=== PATIENT | male | born 1945 | race Two or more races ===

== ENCOUNTER 2016-09-14 05:50 | Emergency (ER) | payer MEDICARE ==
--- NOTE | 2016-09-14 06:08 | Emergency Department Record ---
History of Present Illness - General Chief Complaint: Fall Injury Stated Complaint: FALL Time Seen by Provider: 09/14/16 06:06 Source: Patient Mode of Arrival: EMS Limitations: No limitations - History of Present Illness Initial Comments: The patient is here due to falling in the shower at home an hour ago. According to his he was taking a shower and lost his balance and fell forward injuring the R side of his head and his R shoulder and knee. The patient states he did walk after the fall and had no neck pain. Presently the patient is only complaining of R shoulder and knee pain. He denies any MITCHELL, nausea or any blurred vision. The patient has a recent hx of frequent falls and is supposed to use a walker at home but often does not. He does see visiting physicians for his health care. The patient and deny any recent illness or medication changes. MD Complaint: Fall Onset/Timin -: Minutes(s) Fall From: Standing When Fall Occurred: Just prior to arrival Fall Witnessed: No Place Fall Occurred: Home Loss of Consciousness: None Prolonged Down Time?: No Symptoms Prior to Fall: Other Location: Head - [place] Coma Scale Eye Response: (4) Open spontaneously Motor Response: (6) Obeys commands Verbal Response: (5) Oriented [place] Total: 15 - Related Data Home Medications Medication Instructions Recorded Confirmed Last Taken Acetaminophen [Tylenol Arthritis] 650 mg PO BID 09/14/16 09/14/16 09/13/16 Ascorbic Acid [Vitamin C] 1,000 mg PO DAILY 09/14/16 09/14/16 09/13/16 Aspirin [Aspir-Low] 81 mg PO DAILY 09/14/16 09/14/16 09/13/16 Bimatoprost [Lumigan] 1 drop OP QHS 09/14/16 09/14/16 09/13/16 Bisacodyl [Dulcolax] 5 mg PO BID 09/14/16 09/14/16 09/13/16 Brinzolamide/Brimonidine Tart 1 drop OP TID 09/14/16 09/14/16 09/13/16 [Simbrinza 1%-0.2% Eye Drops] Bumetanide [Bumex] 1 mg PO TID 09/14/16 09/14/16 09/13/16 Cholecalciferol (Vitamin D3) 5,000 unit PO DAILY 09/14/16 09/14/16 09/13/16 [Vitamin D3] Cyanocobalamin (Vitamin B-12) 1,000 mcg PO BID 09/14/16 09/14/16 09/13/16 [Vitamin B-12] Docusate Calcium [Stool Softener] 240 mg PO DAILY 09/14/16 09/14/16 09/13/16 Ferrous Sulfate, Dried [Iron] 65 mg PO DAILY 09/14/16 09/14/16 09/13/16 Fexofenadine HCl [Patricia Allergy] 180 mg PO DAILY 09/14/16 09/14/16 09/13/16 Fluoxetine HCl [Prozac] 20 mg PO DAILY 09/14/16 09/14/16 09/13/16 Hydrocodone/Acetaminophen [[place] 1 tab PO Q6H PRN 09/14/16 09/14/16 09/13/16 10mg/325mg] Insulin Aspart [Novolog Flexpen] 18 unit SQ WMEALS 09/14/16 09/14/16 09/13/16 Insulin Detemir [Levemir Flextouch] 65 unit SQ QHS 09/14/16 09/14/16 09/13/16 Isosorbide Mononitrate [Imdur] 30 mg PO DAILY 09/14/16 09/14/16 09/13/16 Lansoprazole [Prevacid] 15 mg PO DAILY 09/14/16 09/14/16 09/13/16 Losartan Potassium [Cozaar] 100 mg PO DAILY 09/14/16 09/14/16 09/13/16 Magnesium 250 mg PO DAILY 09/14/16 09/14/16 09/13/16 Metformin HCl [Glucophage] 1,000 mg PO BID 09/14/16 09/14/16 09/13/16 Metoclopramide HCl 10 mg PO QID 09/14/16 09/14/16 09/13/16 Metoprolol Succinate [Toprol Xl] 100 mg PO DAILY 09/14/16 09/14/16 09/13/16 Multivitamin [Multi-Vitamin Daily] 1 each PO DAILY 09/14/16 09/14/16 09/13/16 Nitroglycerin [Nitrostat] 0.4 mg SL ASDIR PRN 09/14/16 09/14/16 Unknown Pantoprazole Sodium [Protonix] 40 mg PO DAILY 09/14/16 09/14/16 09/13/16 Potassium Chloride [Klor-Con] 20 meq PO BID 09/14/16 09/14/16 09/13/16 Pravastatin Sodium [Pravachol] 40 mg PO DAILY 09/14/16 09/14/16 09/13/16 Ticagrelor [Brilinta] 90 mg PO BID 09/14/16 09/14/16 09/13/16 Timolol Maleate 0.5% 5Ml Btl 1 drop OP DAILY 09/14/16 09/14/16 09/13/16 [Timoptic] Allergies Allergy/AdvReac Type Severity Reaction Status Date / Time NICOLE Inhibitors Allergy SWELLING Verified 05/29/16 16:00 OF THE LIPS eptifibatide Allergy SWELLING Verified 05/29/16 16:00 [From Integrilin] OF THE TONGUE furosemide [From Lasix] Allergy RASH Verified 05/29/16 15:59 propofol Allergy RASH Verified 05/29/16 15:59 fentanyl AdvReac Verified 05/29/16 15:59 states he is immune morphine AdvReac "doesn't Verified 05/29/16 15:59 work" Travel Screening - Travel/Exposure Within Last 30 Days Have you traveled within the last 30 days?: No - Travel/Exposure Within Last Year Have you traveled outside the [place] in the last year?: No - Additonal Travel Details Have you been exposed to anyone with a communicable illness?: No Review of Systems Constitutional: Denies: Chills, Fever Eyes: Denies: Eye discharge ENT: Denies: Congestion Respiratory: Denies: Cough, Dyspnea Past Medical History - SOCIAL HISTORY Smoking Status: Never smoker Alcohol Use: None Drug Use: None - RESPIRATORY Hx Respiratory Disorders: Yes Hx COPD: Yes Hx Sleep Apnea: Yes (has Bipap but doesn't wear it) - CARDIOVASCULAR Hx Cardio Disorders: Yes Hx CHF: Yes Hx Edema: Yes Hx Heart Attack: Yes Hx Hypertension: Yes Hx Irregular Heartbeat: Yes Hx Pacemaker/Defib: Yes (just pacer) - NEURO Hx Neuro Disorders: Yes Hx CVA: Yes (no residual affects) - GI Hx GI Disorders: Yes Hx Diverticulitis: Yes (w/rupture) - Hx Genitourinary Disorders: No - ENDOCRINE Hx Endocrine Disorders: Yes Hx Diabetes: Yes (IDDM) - MUSCULOSKELETAL Hx Musculoskeletal Disorders: Yes Hx Arthritis: Yes - PSYCH Hx Psych Problems: Yes Hx Depression: Yes - HEMATOLOGY/ONCOLOGY Hx Hematology/Oncology Disorders: Yes Hx Blood Transfusions: Yes Hx Blood Transfusion Reaction: No Family Medical History Any Significant Family History?: No Hx Diabetes: Father, Mother Hx Heart Disease: Father, Mother, Brother/Sister Physical Exam - General General Appearance: Alert, Oriented x3, Cooperative, No acute distress - Head Head exam: Normocephalic. negative: Atraumatic, Normal inspection Head exam detail: Abrasion (over the R temporal parietal area.) - Eye Eye exam: Normal appearance, PERRL - ENT ENT exam: negative: Normal exam (There is a mild contusion to the R maxillary area but there is no bony tenderness.) - Neck Neck exam: Normal inspection, Full ROM. negative: Tenderness (There is no posterior C spine tenderness.) - Respiratory Respiratory exam: Normal lung sounds bilaterally. negative: Respiratory distress - Cardiovascular Cardiovascular Exam: Irregular rhythm. negative: Regular rate, Normal rhythm - GI/Abdominal GI/Abdominal exam: Soft, Normal bowel sounds. negative: Tenderness - Extremities Extremities exam: Normal capillary refill, Pedal edema, Tenderness (THere is mild R shoulder and knee tenderness.). negative: Normal inspection, Full ROM - Neurological Neurological exam: Alert. negative: Motor sensory deficit Course Vital Signs 09/14/16 09/14/16 06:03 06:04 Temperature 97.4 F L Pulse Rate [ 78 Pulse Ox Probe] Respiratory 20 Rate Blood Pressure 129/77 [Left Arm] Pulse Ox 98 - Reevaluation(s) Reevaluation #1: The patient is resting comfortably. He still denies any MITCHELL, neck or back pain. He is resting comfortably and is on his way to xray. 09/14/16 06:50 Reevaluation #2: The patient's care will be turned over to Dr. Carpenter due to shift change. 09/14/16 06:51 Medical Decision Making - Data Complexity MDM Data: Labs Ordered and/or Reviewed - Lab Data Result diagrams: 09/14/16 06:25 09/14/16 06:25 Disposition Forms: Patient Portal Access
[2016-09-14 06:32] LABS: BASO % 0.4 % (0-6); EOS % 6.1 % (0-6); GRAN % 69.8 % (47-80); HEMATOCRIT 40.9 % (42.0-52.0); HEMOGLOBIN 12.4 gm/dl (14.0-18.0); LYMPH % 15.3 % (16-45); MEAN CORPUSCULAR HGB CONC 30.3 g/dl (32-36); MEAN PLATELET VOLUME 10.1 fl (7.4-10.4); MONO % 8.4 % (0-9); PLATELET COUNT 259 K/uL (130-400); WHITE BLOOD COUNT W/O DIFF 10.4 K/uL (4.2-12.2)
[2016-09-14 06:33] LABS: MEAN CORPUSCULAR HEMOGLOBIN 28.1 pg (27-33)
[2016-09-14 06:44] LABS: ANION GAP 17.8 (7-16); BLOOD UREA NITROGEN 20 mg/dL (9-20); CARBON DIOXIDE 23.2 mmol/L (22-30); CREATININE 0.9 mg/dL (0.66-1.25); EST GLOMERULAR FILTRATION RATE > 60 ml/min; GLUCOSE,RANDOM 196 mg/dL (70-110); INR 0.96; PARTIAL THROMBOPLASTIN TIME 25.5 SECONDS (24.5-39.1); PROTHROMBIN TIME (PATIENT) 10.9 SECONDS (9.5-12.1)
--- NOTE | 2016-09-14 07:55 | Emergency Department Record ---
History of Present Illness - General Chief Complaint: Fall Injury Stated Complaint: FALL Time Seen by Provider: 09/14/16 06:06 Source: Patient Mode of Arrival: EMS Limitations: No limitations - History of Present Illness Onset/Timin -: Minutes(s) Fall From: Standing When Fall Occurred: Just prior to arrival Fall Witnessed: No Place Fall Occurred: Home Loss of Consciousness: None Prolonged Down Time?: No Symptoms Prior to Fall: Other Location: Head - [place] Coma Scale Eye Response: (4) Open spontaneously Motor Response: (6) Obeys commands Verbal Response: (5) Oriented [place] Total: 15 - Related Data Home Medications Medication Instructions Recorded Confirmed Last Taken Acetaminophen [Tylenol Arthritis] 650 mg PO BID 09/14/16 09/14/16 09/13/16 Ascorbic Acid [Vitamin C] 1,000 mg PO DAILY 09/14/16 09/14/16 09/13/16 Aspirin [Aspir-Low] 81 mg PO DAILY 09/14/16 09/14/16 09/13/16 Bimatoprost [Lumigan] 1 drop OP QHS 09/14/16 09/14/16 09/13/16 Bisacodyl [Dulcolax] 5 mg PO BID 09/14/16 09/14/16 09/13/16 Brinzolamide/Brimonidine Tart 1 drop OP TID 09/14/16 09/14/16 09/13/16 [Simbrinza 1%-0.2% Eye Drops] Bumetanide [Bumex] 1 mg PO TID 09/14/16 09/14/16 09/13/16 Cholecalciferol (Vitamin D3) 5,000 unit PO DAILY 09/14/16 09/14/16 09/13/16 [Vitamin D3] Cyanocobalamin (Vitamin B-12) 1,000 mcg PO BID 09/14/16 09/14/16 09/13/16 [Vitamin B-12] Docusate Calcium [Stool Softener] 240 mg PO DAILY 09/14/16 09/14/16 09/13/16 Ferrous Sulfate, Dried [Iron] 65 mg PO DAILY 09/14/16 09/14/16 09/13/16 Fexofenadine HCl [Patricia Allergy] 180 mg PO DAILY 09/14/16 09/14/16 09/13/16 Fluoxetine HCl [Prozac] 20 mg PO DAILY 09/14/16 09/14/16 09/13/16 Hydrocodone/Acetaminophen [[place] 1 tab PO Q6H PRN 09/14/16 09/14/16 09/13/16 10mg/325mg] Insulin Aspart [Novolog Flexpen] 18 unit SQ WMEALS 09/14/16 09/14/16 09/13/16 Insulin Detemir [Levemir Flextouch] 65 unit SQ QHS 09/14/16 09/14/16 09/13/16 Isosorbide Mononitrate [Imdur] 30 mg PO DAILY 09/14/16 09/14/16 09/13/16 Lansoprazole [Prevacid] 15 mg PO DAILY 09/14/16 09/14/16 09/13/16 Losartan Potassium [Cozaar] 100 mg PO DAILY 09/14/16 09/14/16 09/13/16 Magnesium 250 mg PO DAILY 09/14/16 09/14/16 09/13/16 Metformin HCl [Glucophage] 1,000 mg PO BID 09/14/16 09/14/16 09/13/16 Metoclopramide HCl 10 mg PO QID 09/14/16 09/14/16 09/13/16 Metoprolol Succinate [Toprol Xl] 100 mg PO DAILY 09/14/16 09/14/16 09/13/16 Multivitamin [Multi-Vitamin Daily] 1 each PO DAILY 09/14/16 09/14/16 09/13/16 Nitroglycerin [Nitrostat] 0.4 mg SL ASDIR PRN 09/14/16 09/14/16 Unknown Pantoprazole Sodium [Protonix] 40 mg PO DAILY 09/14/16 09/14/16 09/13/16 Potassium Chloride [Klor-Con] 20 meq PO BID 09/14/16 09/14/16 09/13/16 Pravastatin Sodium [Pravachol] 40 mg PO DAILY 09/14/16 09/14/16 09/13/16 Ticagrelor [Brilinta] 90 mg PO BID 09/14/16 09/14/16 09/13/16 Timolol Maleate 0.5% 5Ml Btl 1 drop OP DAILY 09/14/16 09/14/16 09/13/16 [Timoptic] Allergies Allergy/AdvReac Type Severity Reaction Status Date / Time NICOLE Inhibitors Allergy SWELLING Verified 05/29/16 16:00 OF THE LIPS eptifibatide Allergy SWELLING Verified 05/29/16 16:00 [From Integrilin] OF THE TONGUE furosemide [From Lasix] Allergy RASH Verified 05/29/16 15:59 propofol Allergy RASH Verified 05/29/16 15:59 fentanyl AdvReac Verified 05/29/16 15:59 states he is immune morphine AdvReac "doesn't Verified 05/29/16 15:59 work" Travel Screening - Travel/Exposure Within Last 30 Days Have you traveled within the last 30 days?: No - Travel/Exposure Within Last Year Have you traveled outside the [place] in the last year?: No - Additonal Travel Details Have you been exposed to anyone with a communicable illness?: No Review of Systems Constitutional: Denies: Chills, Fever Eyes: Denies: Eye discharge ENT: Denies: Congestion Respiratory: Denies: Cough, Dyspnea Past Medical History - SOCIAL HISTORY Smoking Status: Never smoker Alcohol Use: None Drug Use: None - RESPIRATORY Hx Respiratory Disorders: Yes Hx COPD: Yes Hx Sleep Apnea: Yes (has Bipap but doesn't wear it) - CARDIOVASCULAR Hx Cardio Disorders: Yes Hx CHF: Yes Hx Edema: Yes Hx Heart Attack: Yes Hx Hypertension: Yes Hx Irregular Heartbeat: Yes Hx Pacemaker/Defib: Yes (just pacer) - NEURO Hx Neuro Disorders: Yes Hx CVA: Yes (no residual affects) - GI Hx GI Disorders: Yes Hx Diverticulitis: Yes (w/rupture) - Hx Genitourinary Disorders: No - ENDOCRINE Hx Endocrine Disorders: Yes Hx Diabetes: Yes (IDDM) - MUSCULOSKELETAL Hx Musculoskeletal Disorders: Yes Hx Arthritis: Yes - PSYCH Hx Psych Problems: Yes Hx Depression: Yes - HEMATOLOGY/ONCOLOGY Hx Hematology/Oncology Disorders: Yes Hx Blood Transfusions: Yes Hx Blood Transfusion Reaction: No Family Medical History Any Significant Family History?: No Hx Diabetes: Father, Mother Hx Heart Disease: Father, Mother, Brother/Sister Physical Exam - General Limitations: No limitations Course Vital Signs 09/14/16 09/14/16 06:03 06:04 Temperature 97.4 F L Pulse Rate [ 78 Pulse Ox Probe] Respiratory 20 Rate Blood Pressure 129/77 [Left Arm] Pulse Ox 98 - Reevaluation(s) Reevaluation #1: 09/14/16 07:53 ct shows subdural 09/14/16 08:03 Reevaluation #2: 09/14/16 08:03 d/w lamin gill and danilo Reevaluation #3: 09/14/16 08:09 reversal of blood thinner d/w joe asif and lamin. it will be done at [facility] as we do not have reversal agent Medical Decision Making - Lab Data Result diagrams: 09/14/16 06:25 09/14/16 06:25 Lab Results 09/14/16 09/14/16 09/14/16 Range/Units 06:25 06:25 06:25 WBC 10.4 (4.2-12.2) K/uL RBC 4.40 (4.40-5.70) M/uL Hgb 12.4 L (14.0-18.0) gm/dl Hct 40.9 L (42.0-52.0) % MCV 93.0 (81-97) fl MCH 28.1 (27-33) pg MCHC 30.3 L (32-36) g/dl RDW 17.0 H (11.5-14.5) % Plt Count 259 (130-400) K/uL MPV 10.1 (7.4-10.4) fl Gran % 69.8 (47-80) % Lymphocytes % 15.3 L (16-45) % Monocytes % 8.4 (0-9) % Eosinophils % 6.1 H (0-6) % Basophils % 0.4 (0-6) % PT 10.9 (9.5-12.1) SECONDS INR 0.96 PTT 25.50 (24.5-39.1) SECONDS Sodium 145 (136-145) mmol/L Potassium 3.9 (3.5-5.1) mmol/L Chloride 104 (98-107) mmol/L Carbon Dioxide 23.2 (22-30) mmol/L Anion Gap 17.8 H (7-16) BUN 20 (9-20) mg/dL Creatinine 0.9 (0.66-1.25) mg/dL Estimated GFR > 60 ml/min Random Glucose 196 H (70-110) mg/dL Calcium 8.7 (8.5-10.1) mg/dL Disposition Disposition: Transfer Clinical Impression: Subdural hematoma Fall Qualifiers: Encounter type: initial encounter Qualified Code(s): W19.XXXA - Unspecified fall, initial encounter Disposition: Acute Care Hospital Transfer Transfer To: [facility] Reason For Transfer: subdural hematoma Accepting Physician: danilo gill and lamin Time Discussed w/Accepting Physician: 08:03 Forms: Patient Portal Access
== END 2016-09-14 08:17 | disposition short-term general hospital (02) ==
LOC: ER 05:50
DX: S06.5X0A Traumatic subdural hemorrhage without loss of consciousness, initial encounter (principal); M25.561 Pain in right knee; M25.511 Pain in right shoulder; W18.2XXA Fall in (into) shower or empty bathtub, initial encounter; Y93.E1 Activity, personal bathing and showering; Y92.002 Bathroom of unspecified non-institutional (private) residence as the place of occurrence of the external cause; I10 Essential (primary) hypertension; I50.9 Heart failure, unspecified; I25.2 Old myocardial infarction; E11.9 Type 2 diabetes mellitus without complications; Z79.4 Long term (current) use of insulin; Z91.81 History of falling
CPT/HCPCS: 70450; 72125; 80048; 85025; 85610; 85730; 99285

== ENCOUNTER 2017-09-03 18:47 | Emergency (ER) | payer MEDICARE ==
--- NOTE | 2017-09-03 19:09 | Emergency Department Record ---
History of Present Illness - General Chief complaint: Dental Stated complaint: RIGHT FACIAL SWELLING/LOST A DENTAL CROWN Time Seen by Provider: 09/03/17 19:03 Source: Patient, Family Mode of Arrival: EMS Limitations: No limitations - History of Present Illness Initial comments: 72 yo male presents to ED for evaluation of facial swelling after loosing a crown per the patient's SO as well as elevated blood sugars today. SO provides most of the history and is concerned about his elevated blood sugar today and possible dental infection. Patient denies fevers, chills, cough, or abdominal pain symptoms. SO reports a history of ulcerations to the buttocks as well that are being treated by home nursing care. MD complaint: Tooth pain Onset/Timin -: Days(s) Severity: Moderate Consistency: Constant Improves with: None Worsens with: None Associated Symptoms: Fever - Related Data Home Medications Medication Instructions Recorded Confirmed Last Taken Fluticasone Propionate [Flonase 9.9 ml NS ASDIR 09/03/17 09/03/17 Unknown Allergy Relief] Insulin Glargine,Hum.rec.anlog 65 unit SQ QHS 09/03/17 09/03/17 Unknown [Lantus] Allergies Allergy/AdvReac Type Severity Reaction Status Date / Time NICOLE Inhibitors Allergy SWELLING Verified 09/03/17 18:57 OF THE LIPS eptifibatide Allergy SWELLING Verified 09/03/17 18:57 [From Integrilin] OF THE TONGUE furosemide [From Lasix] Allergy RASH Verified 09/03/17 18:57 propofol Allergy RASH Verified 09/03/17 18:57 fentanyl AdvReac Verified 09/03/17 18:57 states he is immune morphine AdvReac "doesn't Verified 09/03/17 18:57 work" Travel Screening - Travel/Exposure Within Last 30 Days Have you traveled within the last 30 days?: No Review of Systems Constitutional: Reports: Fever, Malaise, Weakness. Denies: Chills, Night sweats Eyes: Denies: Eye discharge, Eye pain ENT: Reports: Dental pain. Denies: Congestion Respiratory: Denies: Cough, Dyspnea Cardiovascular: Denies: Chest pain, Dyspnea on exertion Endocrine: Reports: Fatigue. Denies: Heat or cold intolerance Gastrointestinal: Denies: Constipation, Nausea, Vomiting Genitourinary: Denies: Incontinence, Retention Musculoskeletal: Denies: Arthralgia, Back pain, Gout, Joint swelling Skin: Denies: Bruising, Change in color Neurological: Reports: Other ("marble mouth" per SO). Denies: Confusion, Headache Psychiatric: Denies: Anxiety Hematological/Lymphatic: Denies: Anemia, Blood Clots, Other Past Medical History - SOCIAL HISTORY Smoking Status: Never smoker Alcohol Use: None Drug Use: None - RESPIRATORY Hx Respiratory Disorders: Yes Hx COPD: Yes Hx Sleep Apnea: Yes (has Bipap but doesn't wear it) Comment:: 3 L at all times - CARDIOVASCULAR Hx Cardio Disorders: Yes Hx CHF: Yes Hx Edema: Yes Hx Heart Attack: Yes Hx Hypertension: Yes Hx Irregular Heartbeat: Yes Hx Pacemaker/Defib: Yes (just pacer) - NEURO Hx Neuro Disorders: Yes Hx CVA: Yes (no residual affects) - GI Hx GI Disorders: Yes Hx Diverticulitis: Yes (w/rupture) - Hx Genitourinary Disorders: No - ENDOCRINE Hx Endocrine Disorders: Yes Hx Diabetes: Yes (IDDM) - MUSCULOSKELETAL Hx Musculoskeletal Disorders: Yes Hx Arthritis: Yes - PSYCH Hx Psych Problems: Yes Hx Depression: Yes - HEMATOLOGY/ONCOLOGY Hx Hematology/Oncology Disorders: Yes Hx Blood Transfusions: Yes Hx Blood Transfusion Reaction: No Family Medical History Any Significant Family History?: Yes Hx Diabetes: Father, Mother Hx Heart Disease: Father, Mother, Brother/Sister Physical Exam - General General Appearance: Alert, Oriented x3, Cooperative, Moderate distress Limitations: No limitations - Head Head exam: Atraumatic, Normocephalic, Normal inspection Head exam detail: negative: Abrasion, Contusion, Arreola's sign, General tenderness, Hematoma, Laceration - Eye Eye exam: Normal appearance, Other (No facial swelling is appreciated on examination.). negative: Conjunctival injection, Periorbital swelling, Periorbital tenderness, Scleral icterus - ENT Ear exam: negative: Auricular hematoma, Auricular trauma Nasal Exam: negative: Active bleeding, Discharge, Dried blood, Foreign body Mouth exam: negative: Drooling, Laceration, Muffled voice, Tongue elevation - Neck Neck exam: Normal inspection. negative: Meningismus, Tenderness - Respiratory Respiratory exam: Normal lung sounds bilaterally. negative: Respiratory distress, Rhonchi, Stridor, Wheezes - Cardiovascular Cardiovascular Exam: Regular rate, Normal rhythm, Normal heart sounds - GI/Abdominal GI/Abdominal exam: Soft, Distended. negative: Rebound, Rigid, Tenderness - Rectal Rectal exam: Deferred - exam: Deferred - Extremities Extremities exam: Pedal edema (trace edema bilaterally). negative: Calf tenderness - Back Back exam: Denies: CVA tenderness (R), CVA tenderness (L) - Neurological Neurological exam: Alert, Oriented X3 - Psychiatric Psychiatric exam: Normal affect, Normal mood - Skin Skin exam: Normal color. negative: Abrasion Type of lesion: negative: abrasion Course Vital Signs 09/03/17 18:50 Temperature 97.9 F Pulse Rate 73 Respiratory 18 Rate Blood Pressure 115/59 Pulse Ox 96 - Reevaluation(s) Reevaluation #1: 09/03/17 19:24 EKG: Paced rhythm 77 LBBB, no further interpretation due to paced rhythm Reevaluation #2: 09/03/17 19:54 Labs reviewed, Hgb 11.4 (previous 12.4), normal lactic acid, glucose 95. UA pending. Labs are otherwise grossly unremarkable for an acute process. Reevaluation #3: 09/03/17 20:24 Troponin has resulted and is indeterminate at this time. ASA ordered as well. Reevaluation #4: 09/03/17 20:49 CXR: No acute process CT Brain: Chronic ischemic changes, nothing acute. Reevaluation #5: 09/03/17 21:13 Patient and his were updated on all results, will initiate transfer for further evaluation. Case was discussed with Dr. Donaldson, will accept transfer for admission. Medical Decision Making - Lab Data Result diagrams: 09/03/17 19:25 09/03/17 19:25 Disposition Disposition: Transfer Clinical Impression: Elevated troponin level, Dysarthria Anemia Qualifiers: Anemia type: unspecified type Qualified Code(s): D64.9 - Anemia, unspecified Disposition: Acute Care Hospital Transfer Transfer To: [facility] Reason For Transfer: Cardiology consultation Accepting Physician: Mendoza Time Discussed w/Accepting Physician: 21:26 Condition: (2) Stable Forms: Patient Portal Access Time of Disposition: 21:26 Quality - Quality Measures Quality Measures: N/A - Blood Pressure Screening Does Patient Have Any of the Following: No Blood Pressure Classification: Normal BP Reading Systolic Measurement: 115 Diastolic Measurement: 59 Screening for High Blood Pressure: < Normal BP, F/U Not Required > [[id number]]
[2017-09-03 19:33] LABS: BASO % 0.4 % (0-6); GRAN % 70.6 % (47-80); HEMATOCRIT 37.2 % (42.0-52.0); HEMOGLOBIN 11.4 gm/dl (14.0-18.0); LYMPH % 13.4 % (16-45); MEAN CELL VOLUME 95.1 fl (81-97); MEAN CORPUSCULAR HGB CONC 30.6 g/dl (32-36); MEAN PLATELET VOLUME 9.7 fl (7.4-10.4); MONO % 10.6 % (0-9); PLATELET COUNT 276 K/uL (130-400); RED BLOOD COUNT 3.91 M/uL (4.40-5.70); RED CELL DISTRIBUTION WIDTH 16.8 % (11.5-14.5); WHITE BLOOD COUNT W/O DIFF 10.5 K/uL (4.2-12.2)
[2017-09-03 19:34] LABS: MEAN CORPUSCULAR HEMOGLOBIN 29.1 pg (27-33)
[2017-09-03 19:40] LABS: INFLUENZA A NEGATIVE (NEGATIVE); INFLUENZA B NEGATIVE (NEGATIVE)
[2017-09-03 19:43] LABS: BLOOD UREA NITROGEN 25 mg/dL (8-23); CREATININE 0.9 mg/dL (0.7-1.2); EST GLOMERULAR FILTRATION RATE > 60 mL/min
[2017-09-03 19:44] LABS: TOTAL PROTEIN 7.3 g/dL (6.6-8.7)
[2017-09-03 19:46] LABS: GLUCOSE,RANDOM 95 mg/dL (74-109)
[2017-09-03 19:48] LABS: ALT/SGPT 11 U/L (<41)
[2017-09-03 19:49] LABS: ALB/GLOB RATIO 1.1 (1.1-1.8); ALBUMIN 3.8 g/dL (4.0-5.0); ALKALINE PHOSPHATASE 59 U/L (40-129); AST/SGOT 13 U/L (10.0-50.0)
[2017-09-03 19:54] LABS: URINE APPEARANCE CLEAR; URINE BILIRUBIN NEGATIVE (NEGATIVE); URINE BLOOD NEGATIVE (NEGATIVE); URINE COLOR YELLOW; URINE GLUCOSE (UA) NEGATIVE (NEGATIVE); URINE KETONE NEGATIVE (NEGATIVE); URINE LEUKOCYTE ESTERASE NEGATIVE (NEGATIVE); URINE NITRITE NEGATIVE (NEGATIVE); URINE PROTEIN NEGATIVE (NEGATIVE); URINE UROBILINOGEN 0.2 E.U./dL (0.20 - 1.00)
[2017-09-03] MEDS ORDERED: ASPIRIN 81 MG CHEWABLE TABLET PO ONE (20:25)
--- NOTE | 2017-09-05 10:47 | RADIOLOGY REPORT ---
DATE: 09/03/2017 at 8:01 p.m. EXAM: TWO-VIEW, CHEST. HISTORY: Dizziness. TECHNIQUE: AP and lateral views. Preliminary report provided by [facility]. COMPARISON: None. FINDINGS: Dual-lead pacemaker in place with no pneumothorax evident. Heart size at about the upper limits of normal allowing for the AP positioning. No definite acute infiltrate seen, and no pleural effusion evident. Spurring in the spine. Degenerative changes noted in the shoulders bilaterally as well. IMPRESSION: 1. PACEMAKER IN PLACE. 2. SPURRING IN THE SPINE AND SHOULDERS. JOB NUMBER: [id number] MTDD
--- NOTE | 2017-09-05 10:53 | CT SCAN REPORT ---
DATE: 09/03/2017 at 7:56 p.m. EXAM: EMERGENCY HEAD CT SCAN HEAD WITHOUT CONTRAST. HISTORY: Dizziness. TECHNIQUE: Axial CT scan of the head performed without intravenous contrast. Preliminary report provided by [facility]. COMPARISON: Head CT dated 09/14/2016. FINDINGS: No definite acute intracranial hemorrhage identified. No focal mass effect or midline shift apparent. Mild generalized atrophy with chronic- appearing deep white matter changes as before; nonspecific but likely representing some chronic small-vessel deep white matter ischemic disease. No definite acute infarct or intracranial mass lesion seen. Small extra-axial hematoma overlying the right parietotemporal region seen previously is no longer apparent. Membrane thickening inferiorly in the right maxillary antrum. No depressed calvarial fracture is evident. IMPRESSION: 1. GENERALIZED ATROPHY WITH CHRONIC-APPEARING DEEP WHITE MATTER CHANGES BEFORE. 2. MEMBRANE THICKENING INFERIORLY IN THE RIGHT MAXILLARY ANTRUM. 3. NO DEFINITE ACUTE INTRACRANIAL HEMORRHAGE OR FOCAL MASS EFFECT IDENTIFIED. JOB NUMBER: [id number] MTDD
== END 2017-09-03 22:29 | disposition short-term general hospital (02) ==
LOC: ER 18:47
DX: R79.89 Other specified abnormal findings of blood chemistry (principal); R47.1 Dysarthria and anarthria; D64.9 Anemia, unspecified; R42 Dizziness and giddiness; R22.0 Localized swelling, mass and lump, head; E11.9 Type 2 diabetes mellitus without complications; J44.9 Chronic obstructive pulmonary disease, unspecified; I10 Essential (primary) hypertension; I25.2 Old myocardial infarction; Z79.4 Long term (current) use of insulin; Z95.0 Presence of cardiac pacemaker; Z86.73 Personal history of transient ischemic attack (TIA), and cerebral infarction without residual deficits
CPT/HCPCS: 70450; 71046; 80053; 81003; 83605; 84484; 85025; 87400; 93005; 93010; 99285